=== PATIENT | female | born 1945 | race Caucasian/White ===

== ENCOUNTER 2022-12-25 15:25 | Inpatient (IN) | payer MEDICARE, BC ==
[~2022-12-25] VITALS: Ht 165.1 cm; Wt 60.3 kg
--- NOTE | 2022-12-25 14:58 | NUR ---
PT ARRIVED TO THE FLOOR, STABLE, NO S/S OF DISTRESS OR SOB NOTED, NO C/O PAIN OR DISCOMFORT. PT PLEASANT AND CONFUSED. A&OXNAME ONLY. RECEIVED REPORT FROM BLAKE Mitchell RN AT [facility] AND PT ARRIVED VIA GURNEY BY SHERRY HELMS AND HIS COLLEAGUE.
[2022-12-25 15:05] VITALS: BP 163/65
[~2022-12-25 15:25] MED LIST: ASPIRIN PO; SYNTHROID PO; VYTORIN PO
[2022-12-25 15:36] VITALS: BP 163/65
[2022-12-25] MEDS ORDERED: REMEDY ESSENTIAL ZINC PASTE 113 GM TOP PRN (15:45)
[2022-12-25] MEDS ORDERED: ACET-2154 PO (16:14)
[2022-12-25] MEDS ORDERED: ALBU2.5V13 NEB (16:20)
[2022-12-25] MEDS ORDERED: ALBU1.25 NEB (16:20)
[2022-12-25] MEDS ORDERED: ENOX40DI SQ (16:26)
[2022-12-25] MEDS ORDERED: CALC-1210 PO (16:26)
[2022-12-25] MEDS ORDERED: AMLO2.5T2 PO (16:26)
[2022-12-25] MEDS ORDERED: DOCU250C14 PO (16:26)
[2022-12-25] MEDS ORDERED: EZET10TA15 PO (16:36)
[2022-12-25] MEDS ORDERED: FAMO-132 PO (16:37)
[2022-12-25] MEDS ORDERED: FLUT1BLS IH (17:02)
[2022-12-25] MEDS ORDERED: LEVO100T PO (17:02)
[2022-12-25] MEDS ORDERED: SENN-18 PO (17:02)
[2022-12-25] MEDS ORDERED: HYDR-3980 PO (17:02)
[2022-12-25] MEDS ORDERED: LACT-246 PO (17:02)
[2022-12-25] MEDS ORDERED: POLY17PO4 PO (17:02)
[2022-12-25] MEDS ORDERED: FLUD0.1T PO (17:02)
[2022-12-25] MEDS ORDERED: SIMV20TA2 PO (17:02)
[2022-12-25] MEDS ORDERED: ACETAMINOPHEN 325 MG TABLET-SA PATIENTS-PAIN ONLY PO PRN (18:15)
[2022-12-25] MEDS ORDERED: ALBUTEROL SULFATE 1.25 MG/3 ML NEBU NEB PRN (18:15)
[2022-12-25] MEDS ORDERED: AMLODIPINE 2.5 MG TABLET PO ONE (18:30)
[2022-12-25] MEDS: ENSURE WITH FIBER 237 ML LIQUID (CHOCOLATE) PO SCH (18:43)
[2022-12-25] MEDS: DOCUSATE SODIUM 250 MG CAPSULE PO SCH (18:45)
[2022-12-25 20:24] VITALS: BP 153/57
[2022-12-25] MEDS: SENNOSIDES 1 TABLET PO SCH (20:42)
[2022-12-25] MEDS: SIMVASTATIN 20 MG TABLET PO SCH (20:43)
[2022-12-25] MEDS: ENOXAPARIN SODIUM 40 MG/0.4 ML DISP.SYRIN SQ SCH (20:47)
[2022-12-26 04:32] VITALS: BP 160/71
--- NOTE | 2022-12-26 05:44 | NUR ---
AAOx1-2 with some periods of forgetfulness and pleasantly confused. All needs attended.VSS. Kept comfortable. 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 Fall precautions maintained. Incontinent of urine. No BM noted. Will monitor patient. Compliant with med. No acute distress noted. Siderails up for safety.
[2022-12-26] MEDS: LEVOTHYROXINE SODIUM 88 MCG TABLET PO SCH (06:08)
[2022-12-26] MEDS ORDERED: LEVOTHYROXINE SODIUM 100 MCG TABLET PO SCH (07:30)
[2022-12-26] MEDS: MIRALAX 17 GM POWD.PACK PO SCH (09:58)
[2022-12-26] MEDS: EZETIMIBE 10 MG TABLET PO SCH (09:58)
[2022-12-26] MEDS: DOCUSATE SODIUM 250 MG CAPSULE PO SCH ×2 (09:58→17:30)
[2022-12-26] MEDS: FAMOTIDINE 20 MG TABLET PO SCH (09:59)
[2022-12-26] MEDS: AMLODIPINE 2.5 MG TABLET PO SCH ×2 (09:59→10:10)
[2022-12-26] MEDS: FLUDROCORTISONE ACETATE 0.1 MG TABLET PO SCH (09:59)
[2022-12-26] MEDS: CALCIUM CARB/VITAMIN D 600-400 MG TABLET PO SCH (09:59)
[2022-12-26] MEDS: ASPIRIN 81 MG TAB.CHEW PO SCH (09:59)
[2022-12-26] MEDS: ENSURE WITH FIBER 237 ML LIQUID (CHOCOLATE) PO SCH ×3 (10:00→17:21)
[2022-12-26] MEDS: HYDROCODONE/APAP 10-325 MG TABLET PO PRN (10:19)
--- NOTE | 2022-12-26 11:05 | NUR ---
Notified Santy Paul NP of pt's recent elevated BPs. MOBILE ELECTRONICS INSTALLER says that she will put in an order for PRN BP medication.
[2022-12-26 11:29] VITALS: BP 118/65
[2022-12-26] MEDS: FLUTICASONE/VILANTEROL 1 EACH BLST.W.DEV IH SCH (11:49)
[2022-12-26 12:05] LABS: HEMATOCRIT 26.6 % (31.2-41.9); MEAN CORPUSCULAR VOLUME 90.1 fL (75.5-95.3); PLATELET COUNT (AUTO) 261 K/uL (179-408)
--- NOTE | 2022-12-26 12:24 | NUR ---
Notified Santy Paul NP of all pt's lab results and that pt's H&H is low.
[2022-12-26 13:18] LABS: CREATININE 0.9 mg/dL (0.6-1.3); POTASSIUM 3.2 mmol/L (3.5-5.1)
--- NOTE | 2022-12-26 13:42 | NUR ---
GOT PT HISTORY FROM : FAINTING AND FALLS (FAINTING CAUSED THIS FALL AND HOSPITALIZATION) OSTEOPOROSIS, EARLY SIGNS OF DEMENTIA, LEFT HIP REPLACEMENT 7.5 YEARS AGO. Pharmacy asked for clarification on pt's dose of Synthroid. I called pt's , Darius Ness at [phone], left a message and then he called back and we spoke for 20 minutes. Darius confirmed her Synthroid dose is 88mcg and that her Norvasc should be at 7pm, I notified pharmacy of both. Norvasc will be scheduled for 6pm starting tomorrow. Darius also told me that the pt is seeing Dr. Zane Quintero, Territory Manager General Sales at [facility] [phone]. Per , they are trying to keep her systolic BP in the 135/140 range to avoid another fainting spell, which is what broke her Right hip. is also wondering if Mitodrine might be a good replacement for her Norvasc. I notified Santy Paul NP now with Dr. Anaya phone number to discuss BP management and possible med change.
[2022-12-26] MEDS ORDERED: hydrALAZINE HCL 20 MG/1 ML VIAL IV PRN (13:45)
--- NOTE | 2022-12-26 15:15 | NUR ---
Straight Cath done with assist from ARMANI Steward for UA & UC order.
[2022-12-26 15:24] VITALS: BP 157/70
--- NOTE | 2022-12-26 15:40 | NUR ---
Notified Santy Paul NP of scant yellow/purulent drainage from her Right hip incision.
[2022-12-26 17:45] LABS: *BILIRUBIN,URIN NEGATIVE (NEGATIVE); *CLARITY,URINE CLEAR (CLEAR); *COLOR,URINE YELLOW (YELLOW); *KETONES,URINE NEGATIVE (NEGATIVE); *UROBILINOGEN,URINE 0.2 E.U./dl (NORMAL); LEUKOCYTE ESTERASE ,URINE NEGATIVE (NEGATIVE); NITRITE, URINE NEGATIVE (NEGATIVE); PH,URINE 5.5 (5.0-8.0); UGLUCOSE NEGATIVE (NEGATIVE)
[2022-12-26 17:46] LABS: *BLOOD, URINE TRACE (NEGATIVE)
--- NOTE | 2022-12-26 18:16 | NUR ---
Notified Santy Paul NP of UA results and additional lab results including potassium 3.2 Low.
[2022-12-26 20:16] LABS: BACTERIA,URINE RARE /HPF (NONE SEEN); SQUAMOUS EPITHELIAL CELL,UR FEW /HPF (NONE SEEN); WBC,URINE 0-3 /HPF (0-3)
[2022-12-26 20:17] LABS: MUCUS,URINE FEW /LPF (0-FEW)
[2022-12-26 20:33] VITALS: BP 145/60
[2022-12-26] MEDS: SIMVASTATIN 20 MG TABLET PO SCH (20:58)
[2022-12-26] MEDS: SENNOSIDES 1 TABLET PO SCH (20:58)
[2022-12-26] MEDS: ENOXAPARIN SODIUM 40 MG/0.4 ML DISP.SYRIN SQ SCH (21:03)
[2022-12-27 04:54] VITALS: BP 140/65
--- NOTE | 2022-12-27 05:20 | NUR ---
Awake non verbal Periods of confusion at times. Fall precautions maintained. Compliant with meds. Took meds without difficulty with apple sauce. Denies any pain nor any discomfort. Will monitor patient. Incontinent of bowel and bladder. Kept clean and dry. No BM this shift. Siderails up for safety.
[2022-12-27] MEDS: LEVOTHYROXINE SODIUM 88 MCG TABLET PO SCH (06:03)
[2022-12-27 08:09] VITALS: BP 145/80
[2022-12-27] MEDS: FAMOTIDINE 20 MG TABLET PO SCH (08:42)
[2022-12-27] MEDS: FLUDROCORTISONE ACETATE 0.1 MG TABLET PO SCH (08:42)
[2022-12-27] MEDS: EZETIMIBE 10 MG TABLET PO SCH (08:42)
[2022-12-27] MEDS: CALCIUM CARB/VITAMIN D 600-400 MG TABLET PO SCH (08:42)
[2022-12-27] MEDS: ASPIRIN 81 MG TAB.CHEW PO SCH (08:42)
[2022-12-27] MEDS: DOCUSATE SODIUM 250 MG CAPSULE PO SCH ×2 (08:42→16:30)
[2022-12-27] MEDS: MIRALAX 17 GM POWD.PACK PO SCH (08:43)
[2022-12-27] MEDS: FLUTICASONE/VILANTEROL 1 EACH BLST.W.DEV IH SCH (08:43)
[2022-12-27] MEDS: ENSURE WITH FIBER 237 ML LIQUID (CHOCOLATE) PO SCH ×3 (08:44→17:16)
[2022-12-27] MEDS: HYDROCODONE/APAP 10-325 MG TABLET PO PRN (08:51)
[2022-12-27] MEDS ORDERED: POTASSIUM CHLORIDE 20 MEQ TAB.PRT.SR PO ONE (14:00)
[2022-12-27 15:22] VITALS: BP 141/56
[2022-12-27] MEDS: AMLODIPINE 2.5 MG TABLET PO SCH (17:16)
--- NOTE | 2022-12-27 18:18 | NUR ---
0730-Upon routine rounds rec'd patient in bed, asleep, oxygen via N/C as ordered. No apparent respiratory distress noted. Patient wakes up on verbal commands, denies any pain. Oral fluids offered and declined at this time. Safety precautions in place, call light at reach and encouraged to use it every time helps is needed. 0900-Patient ate 75% of her breakfast, patient requires of one person's assist to set up meal tray and to be fed. Scheduled medications administered as ordered. No s/s of hypo/HTN noted. Patient to be OOB for her therapy session; patient with intermittent confusion and forgetfulness, reality orientation provided as needed, per NOC endorsement patient has periods of confusion, today's assigned HOG STICKER states patient's cognitive status is confused as she also had cared for her yesterday. 1300-Patient able to consumed 75% of her lunch at this time. Oral fluids taken well, denies GI discomfort. No N/V noted. VSS and logged into [employer] system as protocol. No swallowing problems or pocketing food behavior noted. Patient swallows smoothly and takes oral fluids well. 1400-patient in bed at this time, assisted her to make a phone call to her whom answered the call and stated he was at the lobby and coming upstairs now. As per patient's , Mrs Nur does not seem to recognize him and he is concerned about it. Reassure patient's that no changes have been observed in patient's condition since this morning and that I would informed MD. to further address his concerns. No unusual happenings were endorsed from photography professor. Patient's was uneasy at first and continue to claimed that patient did not recognize him, a colleague RN came to reassess the patient, and soon after patient does recall the which he was glad. Patient is A/Ox1-2, MD is aware, per MD to monitor orthostatic blood pressure for now. Informed MD that patient's would like to speak to her & phone number provided. 1745-Patient ate 100% of her dinner, patient is alert to herself, denies any pain or discomfort. Encouraged to use call light for help every time needed. RT hip surgical site dressing changed, no SS of bleeding/infection noted, shanell intact. Endorsed to relieving license for proper follow up.
--- NOTE | 2022-12-27 19:28 | NUR ---
RT hip surgical site dressing changed.
--- NOTE | 2022-12-27 19:31 | NUR ---
Per MD to monitor patient's orthostatic blood pressure. Endorsed to incoming RN for proper follow up.
[2022-12-27 20:56] VITALS: BP 152/58
[2022-12-27] MEDS: SENNOSIDES 1 TABLET PO SCH (21:01)
[2022-12-27] MEDS: SIMVASTATIN 20 MG TABLET PO SCH (21:01)
[2022-12-27] MEDS: ENOXAPARIN SODIUM 40 MG/0.4 ML DISP.SYRIN SQ SCH (21:03)
[2022-12-28 04:05] VITALS: BP 159/66
[2022-12-28] MEDS: LEVOTHYROXINE SODIUM 88 MCG TABLET PO SCH (06:16)
--- NOTE | 2022-12-28 07:13 | NUR ---
1930 report received from on going nurse. Patient was AAOX2 with some confusion. She speaks very soft, and ramble. She took her meds crush in apple sauce. She slept for 9 to 10 hours. No other issue observed or reported. Will continue to monitor patient for safety.
[2022-12-28 08:00] VITALS: BP 164/57
[2022-12-28 08:53] LABS: HEMATOCRIT 27.7 % (31.2-41.9); MEAN CORPUSCULAR HEMOGLOBIN 30.2 uug (24.7-32.8); MEAN CORPUSCULAR VOLUME 90.6 fL (75.5-95.3); PLATELET COUNT (AUTO) 357 K/uL (179-408)
[2022-12-28 08:55] LABS: CREATININE 0.9 mg/dL (0.6-1.3); POTASSIUM 3.9 mmol/L (3.5-5.1)
[2022-12-28] MEDS: FLUDROCORTISONE ACETATE 0.1 MG TABLET PO SCH (09:00)
[2022-12-28] MEDS: DOCUSATE SODIUM 250 MG CAPSULE PO SCH ×2 (09:00→17:33)
[2022-12-28] MEDS: ASPIRIN 81 MG TAB.CHEW PO SCH (09:00)
[2022-12-28] MEDS: CALCIUM CARB/VITAMIN D 600-400 MG TABLET PO SCH (09:00)
[2022-12-28] MEDS: MIRALAX 17 GM POWD.PACK PO SCH (09:00)
[2022-12-28] MEDS: FLUTICASONE/VILANTEROL 1 EACH BLST.W.DEV IH SCH (09:00)
[2022-12-28] MEDS: FAMOTIDINE 20 MG TABLET PO SCH (09:00)
[2022-12-28] MEDS: ENSURE WITH FIBER 237 ML LIQUID (CHOCOLATE) PO SCH ×3 (09:00→17:33)
[2022-12-28] MEDS: EZETIMIBE 10 MG TABLET PO SCH (09:01)
--- NOTE | 2022-12-28 14:25 | NUR ---
INDIVIDUALIZED PLAN OF CARE
[2022-12-28] MEDS: HYDROCODONE/APAP 10-325 MG TABLET PO PRN (14:42)
[2022-12-28 15:52] VITALS: BP 151/62
[2022-12-28] MEDS: AMLODIPINE 2.5 MG TABLET PO SCH (17:41)
[2022-12-28 20:40] VITALS: BP 149/58
[2022-12-28] MEDS: ENOXAPARIN SODIUM 40 MG/0.4 ML DISP.SYRIN SQ SCH (21:34)
[2022-12-28] MEDS: SIMVASTATIN 20 MG TABLET PO SCH (21:35)
[2022-12-28] MEDS: SENNOSIDES 1 TABLET PO SCH (21:35)
[2022-12-29 04:20] VITALS: BP 145/60
[2022-12-29 06:05] LABS: HEMATOCRIT 25.3 % (31.2-41.9); MEAN CORPUSCULAR HEMOGLOBIN 30.5 uug (24.7-32.8); MEAN CORPUSCULAR VOLUME 91.1 fL (75.5-95.3); PLATELET COUNT (AUTO) 340 K/uL (179-408)
[2022-12-29 06:23] LABS: CREATININE 0.9 mg/dL (0.6-1.3); PHOSPHOROUS 3.8 mg/dL (2.5-4.9); POTASSIUM 3.9 mmol/L (3.5-5.1)
[2022-12-29] MEDS: LEVOTHYROXINE SODIUM 88 MCG TABLET PO SCH ×2 (07:03→19:00)
--- NOTE | 2022-12-29 07:09 | NUR ---
Patient is stable but she looked very depressed, anxious , lethargic. She is now resting, she is very confused and stayed with her mouth open. There is no respiratory distress observed or reported. Patient need stimulation to answer when you enter her room. However, she once calling or stimulate her chest; she will ask you what do you want. She is very slow to speak and swallow. Will continue to monitor patient for safety.
--- NOTE | 2022-12-29 08:00 | NUR ---
Aspiration precaution implemented. Noted sacral redness. Right hip with shanell noted skin breakdown on incision site scant serous drainage noted. Turn pt q 2 hrs implemented. Pt alert x 1. Call light is within reach.
[2022-12-29 09:54] VITALS: BP 147/53
--- NOTE | 2022-12-29 10:00 | NUR ---
Notified jania LARSON lower abd hard lump noted. NEO will eval pts abd when she makes her rounds.
[2022-12-29] MEDS: CALCIUM CARB/VITAMIN D 600-400 MG TABLET PO SCH (10:02)
[2022-12-29] MEDS: EZETIMIBE 10 MG TABLET PO SCH (10:02)
[2022-12-29] MEDS: MIRALAX 17 GM POWD.PACK PO SCH (10:02)
[2022-12-29] MEDS: DOCUSATE SODIUM 250 MG CAPSULE PO SCH ×2 (10:02→17:07)
[2022-12-29] MEDS: FLUDROCORTISONE ACETATE 0.1 MG TABLET PO SCH (10:02)
[2022-12-29] MEDS: FAMOTIDINE 20 MG TABLET PO SCH (10:02)
[2022-12-29] MEDS: ASPIRIN 81 MG TAB.CHEW PO SCH (10:03)
[2022-12-29] MEDS: FLUTICASONE/VILANTEROL 1 EACH BLST.W.DEV IH SCH (10:04)
[2022-12-29] MEDS: GLUCERNA SHAKE 237 ML CAN PO SCH ×2 (12:00→17:08)
[2022-12-29 15:37] VITALS: BP 124/46
[2022-12-29] MEDS: AMLODIPINE 2.5 MG TABLET PO SCH (17:08)
[2022-12-29 20:00] VITALS: BP_SYST 112; BP_SYST 122; BP_DIAS 51
[2022-12-29] MEDS: ENOXAPARIN SODIUM 40 MG/0.4 ML DISP.SYRIN SQ SCH (22:15)
[2022-12-29] MEDS: SENNOSIDES 1 TABLET PO SCH (22:15)
[2022-12-29] MEDS: SIMVASTATIN 20 MG TABLET PO SCH (22:15)
[2022-12-30 04:00] VITALS: BP 126/46
[2022-12-30 07:49] VITALS: BP 123/61
[2022-12-30] MEDS: FLUTICASONE/VILANTEROL 1 EACH BLST.W.DEV IH SCH (08:41)
[2022-12-30] MEDS: MIRALAX 17 GM POWD.PACK PO SCH (08:41)
[2022-12-30] MEDS: GLUCERNA SHAKE 237 ML CAN PO SCH ×3 (08:41→17:50)
[2022-12-30] MEDS: DOCUSATE SODIUM 250 MG CAPSULE PO SCH ×2 (08:42→16:29)
[2022-12-30] MEDS: CALCIUM CARB/VITAMIN D 600-400 MG TABLET PO SCH (08:42)
[2022-12-30] MEDS: EZETIMIBE 10 MG TABLET PO SCH (08:42)
[2022-12-30] MEDS: ACETAMINOPHEN 325 MG TABLET PO PRN (08:42)
[2022-12-30] MEDS: ASPIRIN 81 MG TAB.CHEW PO SCH (08:42)
[2022-12-30] MEDS: FAMOTIDINE 20 MG TABLET PO SCH (08:43)
[2022-12-30] MEDS: FLUDROCORTISONE ACETATE 0.1 MG TABLET PO SCH (08:43)
--- NOTE | 2022-12-30 09:31 | NUR ---
0730-Rec'd patient in bed, HOB elevated, awake, no respiratory distress noted; oxygen via nasal cannula as ordered, kallie well. Patient responds to verbal commands and simple questions asked. Patient denies pain. Oral fluids encouraged and taken well. No s/s of aspiration noted. Call light at reach and safety measures in place. 0900-Scheduled/due medication administered as ordered, medication given crushed with pudding, swallow well. No ASE noted, oral fluids taken well.Repositioned to promote comfort and facilitate pressure relief.
[2022-12-30] MEDS: IV NS 1000 ML 1,000 ML IV PRN (11:02)
--- NOTE | 2022-12-30 11:44 | NUR ---
11:10-Patient has orders for IVF hydration NS @ 60CC/hr, IV line inserted to Left FA, procedure explained prior insertion. Aseptic tech applied, patient kallie. well procedure. Good blood returned observed; secured IV line with clear tape. IVF hydration therapy initiated as ordered by . 11:30-Patient OOB at this time with rehab personnel & on the W/C, patient participating poorly in therapy.
[2022-12-30 15:39] VITALS: BP 125/49
[2022-12-30] MEDS: AMLODIPINE 2.5 MG TABLET PO SCH (18:04)
--- NOTE | 2022-12-30 18:38 | NUR ---
Patient had a doppler study to RT ext. with findings as follows: "Nonocclusive thrombus of the right common femoral vein as well as visualized great saphenous vein." in addition "Ultrasound interrogation of the right superficial femoral and popliteal veins demonstrate normal compression, flow and augmentation." above results relayed to MD with orders for a CT of head w/o contrast. CT of head done with pending results.
--- NOTE | 2022-12-30 18:56 | NUR ---
RT hip surgical site dressing changed as ordered; affected area with no bleeding, no c/o pain. Handled gently and carefully.
--- NOTE | 2022-12-30 19:09 | NUR ---
CT of head results not uploaded yet. Endorsed to relieving RN for proper follow up.
[2022-12-30 20:00] VITALS: BP 132/53
[2022-12-30] MEDS: SIMVASTATIN 20 MG TABLET PO SCH (20:53)
[2022-12-30] MEDS: SENNOSIDES 1 TABLET PO SCH (20:53)
[2022-12-30] MEDS: ENOXAPARIN SODIUM 40 MG/0.4 ML DISP.SYRIN SQ SCH (20:54)
[2022-12-31 04:00] VITALS: BP 164/49
[2022-12-31] MEDS: HYDROCODONE/APAP 10-325 MG TABLET PO PRN (04:35)
[2022-12-31] MEDS: IV NS 1000 ML 1,000 ML IV PRN ×2 (04:36→20:30)
--- NOTE | 2022-12-31 05:52 | NUR ---
Patient awake, speech unclear, with elevated BP and moaning for pain, given pain meds, with effective results after one hour, patient has no sob no chest pain, right hip dressing intact, no bleeding noted, no sob no chest pain, noted, turn and reposition, abduction pillow in place, kept clean and dry, cont to monitor.
[2022-12-31] MEDS: LEVOTHYROXINE SODIUM 88 MCG TABLET PO SCH ×2 (06:10→06:11)
--- NOTE | 2022-12-31 06:42 | NUR ---
Patient has episode of elevated bp 164/49, given Narco po for pain with help current BP 144/43
[2022-12-31 06:43] VITALS: BP 144/43
[2022-12-31 08:01] VITALS: BP 112/56
[2022-12-31] MEDS: GLUCERNA SHAKE 237 ML CAN PO SCH ×3 (08:03→17:23)
[2022-12-31] MEDS: EZETIMIBE 10 MG TABLET PO SCH (08:25)
[2022-12-31] MEDS: DOCUSATE SODIUM 250 MG CAPSULE PO SCH ×2 (08:25→16:37)
[2022-12-31] MEDS: ASPIRIN 81 MG TAB.CHEW PO SCH (08:25)
[2022-12-31] MEDS: FLUDROCORTISONE ACETATE 0.1 MG TABLET PO SCH (08:25)
[2022-12-31] MEDS: CALCIUM CARB/VITAMIN D 600-400 MG TABLET PO SCH (08:26)
[2022-12-31] MEDS: FAMOTIDINE 20 MG TABLET PO SCH (08:26)
[2022-12-31] MEDS: ACETAMINOPHEN 325 MG TABLET PO PRN ×2 (08:26→21:01)
[2022-12-31] MEDS: FLUTICASONE/VILANTEROL 1 EACH BLST.W.DEV IH SCH (08:27)
[2022-12-31] MEDS: MIRALAX 17 GM POWD.PACK PO SCH (08:27)
--- NOTE | 2022-12-31 10:09 | NUR ---
0730-Upon shift exchange rounds, rec'd patient in bed, asleep, on oxygen @ 2lpm via nc, no respiratory distress noted. No moaning or facial grimaces, patient wakes up on verbal commands, denies pain. Safety measures in place and call light at reach. IVF hydration NS @ 60cc/hr in progress as ordered, IV to left FA infusing well, no s/s of infiltration noted. 0900-Scheduled medication administered, crushed with apple sauce. HOB elevated, noted patient with on and off coughing. ST made aware and will see patient today.
--- NOTE | 2022-12-31 15:49 | NUR ---
1520-Patient rec'd a phone call from Darius () and assisted patient with the telephone, patient able to converse for a few minutes with her . (witnessed by a student from [facility] whom also assisted to hold the to phone to the patient's ear). During the conversation patient to Mr. Mccoy that she had something in her "nose" (which it was the oxygen NC), shortly after the hanged up or either the call dropped (unable to tell). Mr. Mccoy call back and requested to speak to the nurse attending his ., Unable to attend call at the moment due to busy doing treatments and attending other patient's. 1540-Returned the call to Mr. Mccoy and a VM left, encouraged him to call facility for any questions or concerns.
[2022-12-31 16:00] VITALS: BP 137/49
[2022-12-31] MEDS: AMLODIPINE 2.5 MG TABLET PO SCH (18:15)
--- NOTE | 2022-12-31 19:10 | NUR ---
Right hip surgical site healing well, no bleeding or s/s of infection noted. Treatment done as ordered/picture updated; endorsed to incoming relieving RN.
[2022-12-31 20:00] VITALS: BP 150/50
[2022-12-31] MEDS: SIMVASTATIN 20 MG TABLET PO SCH (21:00)
[2022-12-31] MEDS: SENNOSIDES 1 TABLET PO SCH (21:01)
[2022-12-31] MEDS: ENOXAPARIN SODIUM 40 MG/0.4 ML DISP.SYRIN SQ SCH (21:19)
[2023-01-01 04:00] VITALS: BP 141/60
[2023-01-01] MEDS: LEVOTHYROXINE SODIUM 88 MCG TABLET PO SCH (06:32)
[2023-01-01 06:53] LABS: HEMATOCRIT 26.2 % (31.2-41.9); MEAN CORPUSCULAR HEMOGLOBIN 30.6 uug (24.7-32.8); MEAN CORPUSCULAR VOLUME 92.4 fL (75.5-95.3); PLATELET COUNT (AUTO) 443 K/uL (179-408)
[2023-01-01 07:31] LABS: THYROID STIMULATING HORMONE 12.692 mIU/mL (0.358-3.740)
[2023-01-01 07:44] LABS: BILIRUBIN,TOTAL 0.5 mg/dL (0.2-1.0); MAGNESIUM 2.3 mg/dL (1.8-2.4); PHOSPHOROUS 2.8 mg/dL (2.5-4.9); POTASSIUM 3.9 mmol/L (3.5-5.1); TOTAL PROTEIN, SERUM 5.5 g/dL (6.4-8.2)
[2023-01-01] MEDS: GLUCERNA SHAKE 237 ML CAN PO SCH ×3 (08:17→17:03)
[2023-01-01] MEDS: EZETIMIBE 10 MG TABLET PO SCH (09:48)
[2023-01-01] MEDS: ASPIRIN 81 MG TAB.CHEW PO SCH (09:49)
[2023-01-01] MEDS: FAMOTIDINE 20 MG TABLET PO SCH (09:49)
[2023-01-01] MEDS: FLUDROCORTISONE ACETATE 0.1 MG TABLET PO SCH (09:49)
[2023-01-01] MEDS: DOCUSATE SODIUM 250 MG CAPSULE PO SCH ×2 (09:49→17:13)
[2023-01-01] MEDS: CALCIUM CARB/VITAMIN D 600-400 MG TABLET PO SCH (09:49)
[2023-01-01] MEDS: MIRALAX 17 GM POWD.PACK PO SCH (09:50)
[2023-01-01] MEDS: FLUTICASONE/VILANTEROL 1 EACH BLST.W.DEV IH SCH (09:55)
[2023-01-01 12:00] VITALS: BP 161/59
--- NOTE | 2023-01-01 14:28 | NUR ---
INTERDISCIPLINARY TEAM CONFERENCE
[2023-01-01 16:00] VITALS: BP 157/53
[2023-01-01] MEDS: IV NS 1000 ML 1,000 ML IV PRN (17:13)
[2023-01-01] MEDS: AMLODIPINE 2.5 MG TABLET PO SCH (17:13)
--- NOTE | 2023-01-01 17:38 | NUR ---
Pt's [id number], Rell's sister and an RN, is at the pt's bedside. I updated her on the pt's status and plan of care, including that she may be transferred to a SNF tomorrow. Edilma verbalized understanding.
[2023-01-01 20:00] VITALS: BP 140/60
[2023-01-01] MEDS: SIMVASTATIN 20 MG TABLET PO SCH (20:32)
[2023-01-01] MEDS: SENNOSIDES 1 TABLET PO SCH (20:32)
[2023-01-01] MEDS: ENOXAPARIN SODIUM 40 MG/0.4 ML DISP.SYRIN SQ SCH (20:32)
[2023-01-02 04:00] VITALS: BP 135/78
[2023-01-02] MEDS: LEVOTHYROXINE SODIUM 100 MCG TABLET PO SCH (06:49)
[2023-01-02] MEDS: GLUCERNA SHAKE 237 ML CAN PO SCH ×3 (08:02→17:30)
[2023-01-02] MEDS: FLUTICASONE/VILANTEROL 1 EACH BLST.W.DEV IH SCH (09:34)
[2023-01-02] MEDS: MIRALAX 17 GM POWD.PACK PO SCH (09:34)
[2023-01-02] MEDS: FLUDROCORTISONE ACETATE 0.1 MG TABLET PO SCH (09:34)
[2023-01-02] MEDS: LIDOCAINE 5% PATCH TD SCH (09:34)
[2023-01-02] MEDS: EZETIMIBE 10 MG TABLET PO SCH (09:34)
[2023-01-02] MEDS: FAMOTIDINE 20 MG TABLET PO SCH (09:35)
[2023-01-02] MEDS: ASPIRIN 81 MG TAB.CHEW PO SCH (09:35)
[2023-01-02] MEDS: CALCIUM CARB/VITAMIN D 600-400 MG TABLET PO SCH (09:35)
[2023-01-02] MEDS: DOCUSATE SODIUM 250 MG CAPSULE PO SCH ×2 (09:35→17:29)
--- NOTE | 2023-01-02 09:58 | NUR ---
Returned pt's Rell's [phone] call. It went to voicemail at this time. I Left a message updating him on patient's condition today, she is alert, appears positive up in her WC with OT, not always making cognitive sense, but very talkative and happy. Let Rell know that Tee, Semiconductor Processing Technician, would call to discuss next steps. I also spoke with Tee at the Nurse's Station and he said that he would call Rell today.
--- NOTE | 2023-01-02 11:32 | NUR ---
Spoke to pt's , Rell, at the pt's bedside. Updated him again on Liudmila's care for the day so far. He said that he would like to speak to Tee face to face while he's here. I just sent Tee to the room and he is now talking to Rell and Liudmila.
[2023-01-02] MEDS: IV NS 1000 ML 1,000 ML IV PRN (13:24)
[2023-01-02 15:52] VITALS: BP 147/44
[2023-01-02] MEDS: AMLODIPINE 2.5 MG TABLET PO SCH (17:29)
[2023-01-02 20:00] VITALS: BP 138/61
[2023-01-02] MEDS: SENNOSIDES 1 TABLET PO SCH (20:19)
[2023-01-02] MEDS: SIMVASTATIN 20 MG TABLET PO SCH (20:19)
[2023-01-02] MEDS: ENOXAPARIN SODIUM 40 MG/0.4 ML DISP.SYRIN SQ SCH (20:20)
[2023-01-03 04:00] VITALS: BP 158/59
[2023-01-03] MEDS: LEVOTHYROXINE SODIUM 100 MCG TABLET PO SCH (06:23)
[2023-01-03] MEDS: IV NS 1000 ML 1,000 ML IV PRN (06:43)
--- NOTE | 2023-01-03 07:10 | NUR ---
Slept for most of shift. Pt had no c/o of pain or discomfort. Kept clean and all needs attended. Safety precautions maintained. Will endorse to incoming shift.
[2023-01-03 07:42] VITALS: BP 158/46
--- NOTE | 2023-01-03 07:55 | NUR ---
0730-UPON SHIFT EXCHANGE ROUNDS, PATIENT IN BED, AWAKE, RESPONDS TO VERBAL AND TACTILE STIMULI, NO S/S OF PHYSICAL OR RESPIRATORY DISTRESS/COUGH/SOB NOTED. PATIENT CONTINUES ON IVF HYDRATION OF NS AT 60CC/HR AND PER NOC ENDORSEMENT THERE IS A PLAN OF DC PATIENT TO A SNF TODAY BUT NO ACTUAL ORDER YET. SAFETY MEASURES IN PLACE AND CALL LIGHT AT REACH.
[2023-01-03] MEDS: GLUCERNA SHAKE 237 ML CAN PO SCH ×2 (08:10→12:12)
[2023-01-03] MEDS: EZETIMIBE 10 MG TABLET PO SCH (08:33)
[2023-01-03] MEDS: ASPIRIN 81 MG TAB.CHEW PO SCH (08:33)
[2023-01-03] MEDS: FLUTICASONE/VILANTEROL 1 EACH BLST.W.DEV IH SCH (08:33)
[2023-01-03] MEDS: CALCIUM CARB/VITAMIN D 600-400 MG TABLET PO SCH (08:33)
[2023-01-03] MEDS: FAMOTIDINE 20 MG TABLET PO SCH (08:33)
[2023-01-03] MEDS: FLUDROCORTISONE ACETATE 0.1 MG TABLET PO SCH (08:34)
[2023-01-03] MEDS: LIDOCAINE 5% PATCH TD SCH (08:34)
[2023-01-03] MEDS: MIRALAX 17 GM POWD.PACK PO SCH (08:34)
[2023-01-03] MEDS: DOCUSATE SODIUM 250 MG CAPSULE PO SCH (08:34)
[2023-01-03] MEDS ORDERED: AMLODIPINE 2.5 MG TABLET PO SCH (09:30)
[2023-01-03 09:55] VITALS: BP 158/46
--- NOTE | 2023-01-03 12:43 | NUR ---
0900-Scheduled medications administered with no ASE noted. Oral fluids taken well. Patient denies pain/discomfort, watching TV at this time. Will be discharge today and going to [facility] with ambulance turkey picker time of 1:30 pm. 12:30-Care provided, patient incontinent of both, BM/bladder, diaper changed provided. Treatment to RT hip ORIF site done and picture updated.
--- NOTE | 2023-01-03 14:44 | NUR ---
1400-Patient was picked up by [facility] ambulance and transported to her new destination, [facility]. Full report given to facility personnel. Patient left in good stable conditions. All belongings taken, inventory list signed., Medication profile and other paper work provided to ambulance. Patient recid her rehab therapy, left in stable conditions, no s/s physical or respiratory distress noted.
== END 2023-01-03 14:20 | DRG 559 ==
PROVIDERS: ADMIT Physical Medicine & Rehabilitation Pain Medicine; ATTEND Physical Medicine & Rehabilitation Pain Medicine
DX: S72.001D Fracture of unspecified part of neck of right femur, subsequent encounter for closed fracture with routine healing (principal); E43 Unspecified severe protein-calorie malnutrition; N17.0 Acute kidney failure with tubular necrosis; D68.59 Other primary thrombophilia; E87.0 Hyperosmolality and hypernatremia; S09.90XD Unspecified injury of head, subsequent encounter; W19.XXXD Unspecified fall, subsequent encounter; E03.9 Hypothyroidism, unspecified; E11.9 Type 2 diabetes mellitus without complications; E78.5 Hyperlipidemia, unspecified; I10 Essential (primary) hypertension; I25.10 Atherosclerotic heart disease of native coronary artery without angina pectoris; I95.1 Orthostatic hypotension; J44.9 Chronic obstructive pulmonary disease, unspecified; Z96.643 Presence of artificial hip joint, bilateral; D50.9 Iron deficiency anemia, unspecified; E86.1 Hypovolemia; E87.6 Hypokalemia; F01.50 Vascular dementia, unspecified severity, without behavioral disturbance, psychotic disturbance, mood disturbance, and anxiety; Z86.73 Personal history of transient ischemic attack (TIA), and cerebral infarction without residual deficits; R26.9 Unspecified abnormalities of gait and mobility
CPT/HCPCS: 36415; 70450; 71046; 83550; 83735; 84100; 84443; 85025; 97535-GO-CO; A6213; C1758; J1650; J7040